=== PATIENT | female | born 1980 | race Caucasian/White ===

== ENCOUNTER → 2020-02-08 14:46 | Outpatient (CLI) | payer SELFPAY ==
--- NOTE | ~2020-02-08 | XR_ITS ---
EXAMINATION: XR chest 2V DATE: 02/08/2020 19:12 INDICATION: Wheezing. TECHNIQUE: Frontal and lateral views of the chest were obtained. COMPARISON: None. FINDINGS: The chest demonstrates clear lungs without pneumonia, pleural effusion, or pneumothorax. Th e heart size is normal. IMPRESSION: 1. No acute cardiopulmonary disease. Reviewed, dictated and finalized at location A.
--- NOTE | ~2020-02-08 | XR_ITS ---
EXAMINATION: XR soft tissue neck DATE: 02/08/2020 19:12 INDICATION: Throat pain. TECHNIQUE: 2 views of the neck soft tissues were obtained. COMPARISON: None. FINDINGS: The adenoids, palatine tonsils, prevertebral soft tissues, epiglottis, and subglottic airwa y are normal. No radiopaque foreign body. IMPRESSION: 1. Normal neck soft tissues. Reviewed, dictated and finalized at location A.
== END ==
PROVIDERS: PCP Physician Assistant; Visit Provider Physician Assistant
DX: R07.0 Pain in throat (principal); R06.2 Wheezing
CPT/HCPCS: 70360; 71046

== ENCOUNTER 2021-02-06 06:45 | Emergency (ER) | payer SELFPAY ==
--- NOTE | ~2021-02-06 | US_ITS ---
US pelvic complete w TV DATE: 02/06/2021 08:04 INDICATION: Pelvic pain. Known hemorrhagic cyst for 8 weeks. TECHNIQUE: Real-time imaging via transabdominal and transvaginal approaches COMPARISON: None FINDINGS: There is measures approximately 10 cm height, up to 4.7 cm anteroposterior dimension. Centr al endometrial echo measures approximately 7 mm AP dimension. The left ovary measures 5.3 x 3.5 x 3.4 cm. There is an approximately 3 cm complicated cyst of the le ft ovary. There is vascular flow to the left ovary. The right ovary is not visualized. No pelvic mass or abnormal pelvic free fluid collection is noted otherwise. IMPRESSION: 3 cm complicated cyst of left ovary Right ovary is not visualized. Reviewed, dictated and finalized at Location A. Reviewed, dictated and finalized at location B.
[2021-02-06 06:57] VITALS: BP 101/50; PULSE 85; RESP 24; O2SAT 100
[2021-02-06 07:14] VITALS: BP 101/50; PULSE 88; RESP 20; TEMP 36.8; O2SAT 100
--- NOTE | 2021-02-06 07:37 | ED.GENADULT ---
HPI - General Adult General Chief complaint: Abdominal Pain Stated complaint: abd pain Time Seen by Provider: 02/06/21 07:08 Source: patient History of Present Illness HPI narrative: Patient is a 40 y/o female complaining of left lower abdominal pain for 8 weeks. She states that pain is worse since last night. She describes her pain as sharp and rates it as 10/10. She took Ibuprofen which did not help. She states that pain radiates to her buttock and right side. She has some nausea, but no vomiting or diarrhea. She has no dysuria. She states that she was diagnosed with hemorrhagic ovarian cyst 8 weeks and it has not resolved on repeat imaging 2 weeks ago. She states that she is supposed to have labs done tumor marker, but has not had it drawn yet. Related Data Allergies Allergy/AdvReac Type Severity Reaction Status Date / Time latex Allergy Mild HIVES,RASH Verified 02/06/21 08:38 acetaminophen AdvReac Intermediate Nausea and Verified 02/06/21 08:38 Vomiting codeine AdvReac Intermediate Nausea and Verified 02/06/21 08:38 Vomiting hydrocodone AdvReac Intermediate Nausea and Verified 02/06/21 08:38 Vomiting tramadol AdvReac Intermediate Nausea and Verified 02/06/21 08:38 Vomiting Review of Systems Constitutional: Constitutional: Denies chills, Denies fever(s), Denies headache(s) and Denies weakness Eyes: Eyes: Denies blurry vision ENT: Denies headache(s) and Denies neck pain Cardiovascular: Cardiovascular: Denies chest pain and Denies dyspnea Respiratory: Respiratory: Denies cough and Denies dyspnea Gastrointestinal: Gastrointestinal: Reports abdominal pain, Denies diarrhea, Reports nausea and Denies vomiting Genitourinary: Genitourinary: Reports abnormal vaginal bleeding, Denies hematuria and Denies dysuria Musculoskeletal: Musculoskeletal: Denies back pain and Denies neck pain Neurologic: Denies headache(s) and Denies weakness [facility] Past Medical History Medical History (Updated 02/06/21 @ 09:28 by Priya Gale MD) Ovarian cyst Family History Family History Mother Family history of obesity Family history of anemia Family history of arthritis Father Family history of mental disorder Depression Asthma Family history of alcoholism Family history of liver disease Family history of chronic obstructive pulmonary disease Family history of lung disease Grandparent Family history of mental disorder Depression Family history of glaucoma Cerebrovascular accident Family history of Alzheimer's disease Family history of pancreatic cancer Family history of lung cancer Family history of malignant neoplasm of brain Family history of hearing loss Social History Social History Smoking status: Never smoker Alcohol intake: never Exam Const: General: no acute distress and well developed Orientation/consciousness: oriented to person, oriented to place, oriented to time and patient oriented x3 HENMT: Head: normocephalic Ears: external ears normal General nose exam: Normal external nose present Eyes: General: appearance normal, both eyes and all related structures Conjunctivae: conjunctivae normal Neck: Neck: normal visual inspection and full ROM Chest: Chest palpation & inspection: normal inspection of the chest and no tenderness Resp: Effort & Inspection: normal respiratory effort Auscultation: clear to auscultation bilaterally Cardio: Rate: regular rate Rhythm: regular rhythm GI: GI Palp: Yes abdominal tenderness (left lower and right lower quadrant) and Yes Soft to palpation Skin: General skin exam: normal color and turgor normal Neuro: General: oriented to person, oriented to place, oriented to time and patient oriented x3 Cognition (Neuro): normal cognition Extrem: General: normal to inspection, full ROM and no pedal edema Psych: Appearance: grossly normal
[2021-02-06 07:50] LABS: Add Urine Microscopic? YES; Amorphous Sediment Urine Few; Appearance Urine Cloudy (Clear); Bacteria Urine Trace /hpf; Bilirubin Urine Negative (Negative); Blood Urine 1+ (Negative); Color Urine Yellow (Yellow); Glucose Urine UA Negative (Negative); Ketones Urine Trace mg/dL (Negative); Leukocyte Esterase Ur Negative LEU/UL (Negative); Mucus Urine Rare /lpf; Nitrate Urine Negative (Negative); Protein Urine Negative (Negative); RBC Urine 0-2 /hpf (0-2); Specific Grav Ur 1.009 (1.001-1.035); Squamous Epithelial Cell Urine Few /hpf (Few); Urobilinogen Urine Negative mg/dL (<2.0)
[2021-02-06] MEDS: SODIUM CHLORIDE 0.9% IV 1,000 ML 999 ML IV CONT (08:09)
--- NOTE | 2021-02-06 08:09 | PC.NURSE ---
contacted [facility] office to get ultrasound report.
[2021-02-06] MEDS: KETOROLAC 30 MG/ML VIAL (*BKC) IV PUSH (08:11)
[2021-02-06 08:16] VITALS: BP 102/64; O2SAT 99
[2021-02-06 08:21] LABS: Basophils Percent Auto 0.1 % (0.2-1.2); Hematocrit 38.7 % (37.0-47.0); Hemoglobin 13.3 g/dL (12.0-15.0); Immature Granulocyte Absolute 0.02 K/mm3 (0.00-0.031); Immature Granulocyte Percent A 0.3 % (0-0.5); Lymphocytes Absolute Auto 0.79 K/mm3 (0.9-3.2); Lymphocytes Percent Auto 11.6 % (18.3-44.2); Mean Corpuscular HGB Conc 34.4 g/dl (32-36); Mean Corpuscular Hemoglobin 32.8 pg (26-34); Mean Corpuscular Volume 95.3 fl (80-100); Mean Platelet Volume 11.3 fl (7.4-10.4); Monocytes Absolute Auto 0.6 K/mm3 (0.1-0.6); Monocytes Percent Auto 8.2 % (2.6-8.5); Neutrophils Absolute Auto 5.4 K/mm3 (1.3-6.7); Neutrophils Percent Auto 79.8 % (45.5-73.1); Platelet Count Result 152 k/mm3 (150-375); Red Blood Count 4.06 M/mm3 (4.2-5.4); Red Cell Distribution Width 12.5 % (11.5-14.5); White Blood Count 6.8 K/mm3 (4.5-10.0)
[2021-02-06 08:31] VITALS: BP 104/57; O2SAT 99
[2021-02-06 08:33] LABS: Alanine Aminotransferase 12 U/L (4-35); Albumin Level 3.9 g/dL (3.5-5.1); Alkaline Phosphatase 50 U/L (38-126); Anion Gap 6 mmol/L (8-16); Aspartate Amino Transferase 21 U/L (14-36); Bilirubin,Total 1.5 mg/dL (0.2-1.3); Blood Urea Nitrogen 5 mg/dL (7-17); Calcium 8.4 mg/dL (8.4-10.2); Carbon Dioxide 25 mmol/L (22-30); Chloride 106 mmol/L (98-107); Estimated CRCL calculation 108 ml/min; Estimated Glomerular Filt Rate > 60; Glucose 99 mg/dL (65-105); Lipase 44 U/L (23-300); Potassium 3.5 mmol/L (3.4-5.0); Sodium 137 mmol/L (137-145)
[2021-02-06 08:45] VITALS: BP 101/55; O2SAT 99
--- NOTE | 2021-02-06 10:00 | PC.NURSE ---
[id number] called lab to make sure CA-125 lab could be added on. Lab confirmed. Pt does not need to stay for results per Dr. Gale.
[2021-02-06 10:27] VITALS: BP 100/61; PULSE 84; RESP 18; O2SAT 99
[2021-02-10 04:02] LABS: CA-125 41 U/mL (<35)
== END 2021-02-06 10:20 | disposition home or self-care (01) ==
PROVIDERS: Emergency Medicine; Emergency Provider Emergency Medicine; PCP Physician Assistant
DX: N83.202 Unspecified ovarian cyst, left side (principal)
CPT/HCPCS: 36415; 76830; 76856; 80053; 81001; 81025; 83690; 85025; 86304; 96361; 96374; 99284; J1885; J7030

== ENCOUNTER 2023-08-15 17:02 | Emergency (ER) | payer SELFPAY ==
--- NOTE | ~2023-08-15 | XR_ITS ---
EXAMINATION: XR abdomen/kub 1V INDICATION: Left flank pain TECHNIQUE: Supine views of the abdomen were obtained on 2 radiographs. COMPARISON: 10/27/2014 FINDINGS: No definite urolithiasis is identified. A moderate volume of colonic stool is present. The bowel gas pattern is normal. The visualized lung bases are clear. The osseous structures are unremark able. IMPRESSION: 1. No definite urolithiasis identified. 2. Constipation. Reviewed, dictated and finalized at location F.
[2023-08-15 17:06] VITALS: BP 100/60; PULSE 83; RESP 16; TEMP 36.6; O2SAT 100
--- NOTE | 2023-08-15 17:32 | ED.FEMALEGU ---
HPI - Female Genitourinary General Chief complaint: Urogenital-Female Stated complaint: left side abdo pain Time Seen by Provider: 08/15/23 17:25 Source: patient, RN notes reviewed and old records reviewed Mode of arrival: ambulatory Limitations: no limitations History of Present Illness HPI Narrative: 43 year old female who presents to [facility] care with complaints of having frequency of urination, denies any burning with urination, reports that she has had urinary tract infection in the past.Patient reports that she has some left sided lateral abdominal pain that radiates to her back. Patient reports that she had a normal bowel movement this morning. Patient reports family history of kidney stones. MD elicited complaint: UTI , back pain and other (left sided abdominal pain) Pertinent past history: other (past UTI, cyst) Onset (ago): day(s) (4) Severity: moderate Severity scale (1-10): 5 Quality of pain: dull and aching Vaginal discharge: none Vaginal bleeding: none Urinary symptoms: Frequency Related Data Allergies Allergy/AdvReac Type Severity Reaction Status Date / Time latex Allergy Mild HIVES,RASH Verified 08/15/23 17:12 acetaminophen AdvReac Intermediate Nausea and Verified 08/15/23 17:12 Vomiting codeine AdvReac Intermediate Nausea and Verified 08/15/23 17:12 Vomiting hydrocodone AdvReac Intermediate Nausea and Verified 08/15/23 17:12 Vomiting tramadol AdvReac Intermediate Nausea and Verified 08/15/23 17:12 Vomiting Review of Systems Review of Systems: CONSTITUTIONAL: Denies malaise, chills, sweats, or fever. EYES: Denies visual changes, redness, or discharge. ENT: Reports no rhinorrhea, congestion, sinus pain, otalgia and sore throat. CARDIOVASCULAR: Denies chest pain, palpitations, or edema. RESPIRATORY: Reports no cough.? Denies dyspnea. GASTROINTESTINAL: Reports some left lateral abdominal pain radiating to the left back, denies any nausea, vomiting, diarrhea, states urinary frequency SKIN: Denies rash or itching. MUSCULOSKELETAL: Denies myalgia. NEUROLOGIC: Denies headache. All systems reviewed & are unremarkable except as noted in HPI and below PMFSH Past Medical History Medical History (Updated 08/16/23 @ 12:13 by Lela Suresh NP) Autoimmune disease GERD (gastroesophageal reflux disease) Ovarian cyst Pituitary microadenoma Surgical History Surgical History (Updated 08/16/23 @ 12:13 by Lela Suresh NP) H/O right breast biopsy History of tonsillectomy Previous section Status post bilateral salpingectomy ovarian cysts removed Family History Family History Mother Family history of obesity Family history of anemia Family history of arthritis Father Family history of mental disorder Depression Asthma Family history of alcoholism Family history of liver disease Family history of chronic obstructive pulmonary disease Family history of lung disease Grandparent Family history of mental disorder Depression Family history of glaucoma Cerebrovascular accident Family history of Alzheimer's disease Family history of pancreatic cancer Family history of lung cancer Family history of malignant neoplasm of brain Family history of hearing loss Social History Social History (Updated 08/15/23 @ 18:07 by Lela Suresh NP) Smoking status: Current every day smoker Tobacco type: cigarettes Alcohol intake: never Substance use type: does not use Living arrangements: with family Gender identity (if verbalized by the patient): Female Comments At time of signature, agree with nursing past medical, surgical, social and family history. There is no relevant family history pertinent to the presenting complaint Exam Narrative: GENERAL: Well-appearing, well-nourished, and in no acute distress.no fevers or chills HEAD: Normocephalic EYES: PERRLA, conjunctivae
== END 2023-08-15 17:58 | disposition home or self-care (01) ==
PROVIDERS: Emergency Provider Registered Nurse; PCP Physician Assistant
DX: K59.00 Constipation, unspecified (principal); R35.0 Frequency of micturition; F17.210 Nicotine dependence, cigarettes, uncomplicated
CPT/HCPCS: 74018; 81003; 87086; 87088; 99213; G0463

== ENCOUNTER 2024-08-03 08:43 | Outpatient (CLI) | payer SELFPAY ==
--- NOTE | ~2024-08-03 | MMUS_ITS ---
EXAMINATION: MM diagnostic bradley BI w marly, US breast BI limited HISTORY: Palpable bilateral breast lumps TECHNIQUE: 3-D tomosynthesis images of the bilateral breasts were performed and synthetic 2-D images were generated. CAD analysis was submitted and interpreted. High resolution limited bilateral breast ultrasound was performed. COMPARISON: None BREAST PARENCHYMAL COMPOSITION:Dense: The breasts are extremely dense, which lowers the sensitivity o f mammography. FINDINGS: MAMMOGRAPHIC FINDINGS: No suspicious mass lesion or distortion seen. No suspicious microcalcific dictation seen. No mammogra phic abnormality identified. ULTRASOUND: At the 4:00 position right breast, 3 cm from the nipple, no sonographic abnormality seen. At the 10:0 0 position right breast, 4.5 cm from the nipple, there is a 1.6 x 1.0 x 1.5 cm simple cyst. There are additional smaller simple cysts at the left breast 2:00 position, 5 cm from the nipple, measuring 7 mm and 4 mm in diameter. At the 6:00 position left breast, 3 cm in the nipple, there is a 8 x 5 x 7 m m solid circumscribed wider than tall homogeneous mass with posterior through transmission. IMPRESSION: 8 mm oval, probable benign solid mass at the left breast 6:00 position, 3 cm from the nipple. Additional benign cysts bilaterally, as above. Six-month follow-up ultrasound of the left breast 6:00 position 3 cm from the nipple recommended to follow-up the millimeter probable benign solid mass. BI-RADS category 3, probably benign findings. Reviewed, dictated and finalized at location . IMPRESSION: 8 mm oval, probable benign solid mass at the left breast 6:00 position, 3 cm f rom the nipple. Additional benign cysts bilaterally, as above. Six-month follow-up ultrasound of the left breast 6:00 position 3 cm from the nipple recommended to follow-up the millimeter probable benign solid mass. BI-RADS category 3, probably benign findings.
== END 2024-08-03 08:44 | disposition home or self-care (01) ==
PROVIDERS: PCP Physician Assistant; Visit Provider Nurse Practitioner
DX: N63.42 Unspecified lump in left breast, subareolar (principal); N60.02 Solitary cyst of left breast; N60.11 Diffuse cystic mastopathy of right breast
CPT/HCPCS: 76642; 77062; 77066; G0279

== ENCOUNTER 2025-05-27 10:28 | Outpatient (CLI) | payer SELFPAY ==
--- NOTE | ~2025-05-27 | XR_ITS ---
[id number] Ordering provider: Raymond Vallejo, [place] History: . REYES, cervicalgia . Comparison: None. FINDINGS: VERTEBRAL BODIES: Normal height and alignment. No visible fracture or subluxation. The dens is intact . DISK SPACES: Well maintained. PARASPINOUS SOFT TISSUES: No prevertebral soft tissue swelling. IMPRESSION: No acute osseous abnormality cervical spine. Reviewed, dictated and finalized at location A.
== END 2025-05-27 10:29 | disposition home or self-care (01) ==
PROVIDERS: PCP Chiropractor; Visit Provider Chiropractor
DX: R51.9 Headache, unspecified (principal); M54.2 Cervicalgia
CPT/HCPCS: 72040

== ENCOUNTER 2025-06-03 08:21 | Outpatient (CLI) | payer SELFPAY ==
--- NOTE | ~2025-06-03 | US_ITS ---
US breast LT limited 06/03/2025 08:46 Indication: Follow-up left breast mass Procedure: High-resolution Limited LEFT breast ultrasound Comparison: Ultrasound dated 08/03/2024 Findings: There is an oval circumscribed parallel oriented hypoechoic mass measuring 6 x 6 x 5 mm com pared with 8 x 5 x 7 mm on prior examination. No internal vascularity. There is posterior acoustic en hancement. Impression: 1: Stable likely benign left breast mass at 6:00, 3 cm from the nipple measuring 6 mm. BI-RADS CATEGORY 3-PROBABLY BENIGN FINDING RECOMMENDATION: Six-month follow-up bilateral mammogram and Limited left breast ultrasound recommende d. Reviewed, dictated and finalized at location B. Impression: 1: Stable likely benign left breast mass at 6:00, 3 cm from the nipple measurin g 6 mm. BI-RADS CATEGORY 3-PROBABLY BENIGN FINDING RECOMMENDATION: Six-month follow-up bilateral mammogram and Limited left breast ultrasound recommended.
== END 2025-06-03 08:22 | disposition home or self-care (01) ==
PROVIDERS: PCP Chiropractor; Visit Provider Obstetrics & Gynecology Gynecology
DX: N63.20 Unspecified lump in the left breast, unspecified quadrant (principal)
CPT/HCPCS: 76642